=== PATIENT | male | born 1955 | race Caucasian/White ===

== ENCOUNTER 2017-03-24 15:00 | Inpatient (IN) | payer OTHER ==
[~2017-03-24] VITALS: Ht 165.1 cm; Wt 54.9 kg
--- NOTE | ~2017-03-24 | PA ---
Unit #: [id number] #: [id number] Patient: MAQRUITA WINCHESTER [id number] [facility] [address] [place] [address] [id number] MR#: [id number] NAME: MARQUITA WINCHESTER ROOM: 82 Age: 61 Sex: M Admission Date: 03/24/2017 : 1955 Date of Assessment: 03/25/2017 Attending Physician: Compa Mckeon M.D. Admitting Physician: Compa Mckeon M.D. Primary Care Physician: Generic Doctor Not In System PSYCHIATRIC ASSESSMENT IDENTIFYING INFORMATION The patient is a 61-year-old white male admitted to the [facility] unit complaining of increased alcohol use and depressed mood. INFORMANT(S) Patient. RELIABILITY Fair. CHIEF COMPLAINT None given. HISTORY OF PRESENT ILLNESS The patient is a 61-year-old white male who reports a 30 year history of alcohol dependence. The patient reports that he has been drinking 1-1/2 pints of vodka on a daily basis. The patient's CIWA score on admission was a 6. His blood alcohol 0 but his pulse was 118. The patient is originally from [place] but has worked in the [employer]. He is now retired. His daughter lives in the area but the patient himself has no home. The patient reports a history of suicidal ideation but has no history of attempts. The patient reports that he has been prescribed "mood stabilizing medication in the past" but at the time of admission we have no record of any medications which he has been taking. PAST PSYCHIATRIC HISTORY As above. FAMILY HISTORY Noncontributory. SOCIAL HISTORY The patient is currently homeless. He is originally from [place], grew up in [place] and has worked in the [employer] industry but is retired. He had been an announcer. He reports alcohol use as noted previously and is a smoker. MEDICAL HISTORY Noncontributory. MEDICATION HISTORY None at this time. Unit #: [id number] #: [id number] Patient: MARQUITA WINCHESTER ALLERGIES None reported. MENTAL STATUS EXAM At this time, reveals the patient to be a somewhat disheveled white male appearing older than his stated age of 61 years. He is in no apparent physical distress at the time of the examination. He is awake, alert, oriented in all spheres. His mood is mildly dysphoric. His affect congruent. Speech is generally relevant and coherent. There are no gross deficits in memory or cognition noted. Intelligence is judged to be in the average range based on fund of knowledge. The patient is cooperative throughout the interview. He is currently reporting no suicidal/homicidal ideation or psychotic features. Judgement and insight appear to be intact. ASSETS AND LIABILITIES Patient's assets, motivation for changes. Liabilities, lack of resources. ADMITTING DIAGNOSES 1. Alcohol use disorder. 2. Mood disorder, unspecified. PSYCHIATRIC PLAN/TREATMENT GOALS The patient remains hospitalized for safety and stabilization. Routine detox protocol for alcohol has been initiated. We will attempt to contact the patient's pharmacy in [place], [place] as soon as possible but it may not be open until Tuesday. I have asked for a med consult related to history of hypertension. ESTIMATED LENGTH OF STAY Five days. Dictated by... Compa Mckeon M.D. CAROLINA/padmini TD: 03/25/2017 19:45 JOB #: [id number] PSYCHIATRIC ASSESSMENT Page 1 of 1 X Compa Mckeon MD X PSYCHIATRIC ASSESSMENT
--- NOTE | ~2017-03-24 | PN ---
Unit #: [id number] #: [id number] Patient: MARQUITA WINCHESTER [id number] [facility] [address] [place] [address] [id number] MR#: [id number] NAME: MARQUITA WINCHESTER ROOM: P182 Age: 61 Sex: M Admission Date: 03/24/2017 : 1955 Attending Physician: Compa Mckeon M.D. Admitting Physician: Compa Mckeon M.D. Primary Care Physician: Bronson Doctor Not In System [facility] PROGRESS NOTES DATE 03/28/2017 DISCUSSION The patient reports that his daughter has made arrangements for him to go to a rehab facility and discharge should take place tomorrow to that end. Dictated by... Compa Mckeon M.D. CB/nurys TD: 03/29/2017 00:26 JOB #: [id number] [facility] PROGRESS NOTES Page 1 of 1 X Compa Mckeon MD X PROGRESS NOTE
--- NOTE | ~2017-03-24 | PN ---
Unit #: [id number] #: [id number] Patient: MARQUITA WINCHESTER [id number] [facility] [address] [place] [address] [id number] MR#: [id number] NAME: MARQUITA WINCHESTER ROOM: P182 Age: 61 Sex: M Admission Date: 03/24/2017 : 1955 Attending Physician: Compa Mckeon M.D. Admitting Physician: Compa Mckeon M.D. Primary Care Physician: Generic Doctor Not In System [facility] PROGRESS NOTES DATE 03/26/2017 DISCUSSION The patient is resting comfortably today and voices no new complaint. Staff reports no management issues but reports that his participation has been less than optimal. We continue his detox with planned early week discharge. Dictated by... Compa Mckeon M.D. CB/fareed TD: 03/26/2017 14:36 JOB #: [id number] [facility] PROGRESS NOTES Page 1 of 1 X Compa Mckeon MD X PROGRESS NOTE
--- NOTE | ~2017-03-24 | PN ---
Unit #: [id number] #: [id number] Patient: MARQUITA WINCHESTER [id number] [facility] [address] [place] [address] [id number] I MR#: [id number] NAME: MARQUITA WINCHESTER ROOM: P182 Age: 61 Sex: M Admission Date: 03/24/2017 : 1955 Attending Physician: Compa Mckeon M.D. Admitting Physician: Compa Mckeon M.D. Primary Care Physician: Generic Doctor Not In System [facility] PROGRESS NOTES DATE 03/27/2017 DISCUSSION The patient is active within the therapeutic milieu. His detox continues uneventfully and he should be ready for discharge within the next couple of days. We will do what we can with regards to disposition but the patient's lack of resources make the most likely disposition referral to a local homeless fci. Dictated by... Compa Mckeon M.D. CB/nurys TD: 03/28/2017 01:37 JOB #: [id number] [facility] PROGRESS NOTES Page 1 of 1 X Compa Mckeon MD PROGRESS NOTE
--- NOTE | ~2017-03-24 | CO ---
Unit #: [id number] #: [id number] Patient: MARQUITA WINCHESTER [id number] [facility] [address] [place] [address] [id number] I MR#: [id number] NAME: MARQUITA WINCHESTER ROOM: 82 Age: 61 Sex: M Admission Date: 03/24/2017 : 1955 Attending Physician: Compa Mckeon M.D. Primary Care Physician: Generic Doctor Not In System CONSULTATION REPORT REASON FOR CONSULT Patient's low potassium level. SUBJECTIVE "I do drink a lot of alcohol. I have drank at least a pint and a half every day. I don't eat very well." OBJECTIVE Vital signs within normal limits. Potassium level from this morning 03/26 is at 2.5. Patient received 40 mEq of potassium syrup last night. Will re-administer same today and start patient on potassium 20 mEq b.i.d. and recheck Tuesday. Dictated by... Tiffany Mccain/padmini TD: 03/26/2017 18:06 JOB #: [id number] CONSULTATION REPORT Page 1 of 1 X Daysi Garcia APR X CONSULTATION REPORT
--- NOTE | ~2017-03-24 | CO ---
Unit #: [id number] #: [id number] Patient: MARQUITA WINCHESTER [id number] [place] [address] [id number] I MR#: [id number] NAME: MARQUITA WINCHESTER ROOM: P182 Age: 61 Sex: M Admission Date: 03/24/2017 : 1955 Attending Physician: Compa Mckeon M.D. Consultation Date: 03/25/2017 CONSULTATION REPORT HISTORY OF PRESENT ILLNESS Marquita had CMP that showed a potassium of 2.8 and a chloride of 96. He reports that at home, he has very terrible appetite likely due to his alcohol intake. He also had severe depression and anxiety that made him feel sick when he ate. He is not taking any water pills. He has no history of low potassium. He has no other complaints. PHYSICAL EXAMINATION CARDIAC: Regular rate and rhythm. No murmurs, gallops, or rubs. RESPIRATORY: Clear to auscultation bilaterally. ASSESSMENT AND PLAN Marquita did receive potassium supplements in the morning. We will recheck BMP in the morning. Please notify us if his potassium level is still abnormal. Dictated by... Sierra Wood A.P.R.N. for Zaynab Day/lonny TD: 03/27/2017 23:18 JOB #: [id number] CONSULTATION REPORT Page 1 of 1 X SIERRA GARVIN APRN X CONSULTATION REPORT
--- NOTE | ~2017-03-24 | HP ---
Unit #: [id number] #: [id number] Patient: MARQUITA WINCHESTER [id number] [facility] [address] [place] [address] [id number] I MR#: [id number] NAME: MARQUITA WINCHESTER ROOM: P182 Age: 61 Sex: M Admission Date: 03/24/2017 : 1955 Attending Physician: Compa Mckeon M.D. Admitting Physician: Compa Mckeon M.D. Primary Care Physician: Generic Doctor Not In System HISTORY AND PHYSICAL HISTORY OF PRESENT ILLNESS Maqruita is a 61-year-old male admitted on 03/24/2017 to [facility] for detox from alcohol as well as depression and anxiety. PAST MEDICAL HISTORY 1. Hypertension. 2. Pancreatitis. 3. Insomnia. PAST SURGICAL HISTORY None. ALLERGIES No known drug allergies. SOCIAL HISTORY Smokes 1-1/2 packs of cigarettes daily. Drinks 1 to 1-1/2 pints of alcohol daily. Denies any illegal drug use. He is currently and living alone. FAMILY HISTORY Noncontributory. REVIEW OF SYSTEMS CONSTITUTIONAL: No fever or chills. HEENT: Denies any sore throat, ear pain or runny nose. CARDIOVASCULAR: Denies chest pain, irregular heart rhythm or palpitations. CHEST: Denies shortness of breath or cough. No hemoptysis. GASTROINTESTINAL: Denies nausea, vomiting, diarrhea or chronic constipation. ENDOCRINE: Denies history of increased thirst or urination. No recent significant weight loss or gain. GENITOURINARY: Denies dysuria, frequency, or hematuria. SKIN: Denies any rashes. HEMATOLOGIC: Denies history of increased bleeding or bruising. MUSCULOSKELETAL: Denies any hot, swollen joints. No generalized muscle pain. NEUROLOGIC: Denies problems with vision or speech. No frequent, severe headaches. No numbness, tingling or weakness in any extremities. Denies loss of bladder or bowel control. CURRENT MEDICATIONS He is unsure of any of his home medications. He does report taking a Unit #: [id number] #: [id number] Patient: MARQUITA WINCHESTER blood pressure medication but no water pills. We are trying to verify these with his pharmacy. However, they will not be open until next week. PHYSICAL EXAMINATION GENERAL: Alert, oriented, in no acute distress. VITAL SIGNS: Blood pressure 129/89, heart rate 98 during exam, respirations 16. HEIGHT: 5 feet 5. WEIGHT: 121 pounds. SKIN: Warm and dry without rash or lesion. HEENT: Normocephalic. TMs not viewed. Oral and nasal passages clear. Conjunctivae clear. PERRLA. EOMs intact. NECK: Supple without lymphadenopathy or thyromegaly. HEART: Regular rate and rhythm without murmur. LUNGS: Clear. ABDOMEN: Soft, nontender, without masses or hepatosplenomegaly. : Not done. EXTREMITIES: No evidence of cyanosis, clubbing or edema. Moves all without focal deficit. NEUROLOGICAL: Grossly within normal limits. Cranial Nerves: II: Visual eden are intact. III, IV AND : Extraocular movements are intact. Pupils are equal, round and reactive to light. V: Facial sensation is grossly normal. VII: Facial movements and expression are normal. VIII: Auditory acuity grossly intact. IX, X: Uvula is midline. Phonation is normal. XI: Patient shrugs shoulders and turns head normally. XII: Tongue protrudes in the midline. Sensory and Motor Function: Sensory and motor sensation is grossly normal. Motor: moves all extremities well. Coordination: Gait is normal. Deep Tendon Reflexes: Intact. IMPRESSION 1. Psychiatric admission. 2. Hypertension. 3. Pancreatitis. 4. Insomnia. RECOMMENDATIONS PSYCHIATRIC: Per psychiatrist. MEDICAL: No contraindication to participate in facility's activities. MEDICAL PROGNOSIS Good. MEDICAL CONDITION Stable. Dictated by... Tiffany De Anda/padmini TD: 03/25/2017 22:36 JOB #: [id number] Unit #: [id number] #: [id number] Patient: MARQUITA WINCHESTER HISTORY AND PHYSICAL Page 1 of 1 X MICHAEL GARVIN APRN HISTORY AND PHYSICAL
--- NOTE | ~2017-03-24 | DS ---
Unit #: [id number] #: [id number] Patient: MARQUITA WINCHESTER [id number] [facility] [address] [place] [address] [id number] I MR#: [id number] NAME: MARQUITA WINCHESTER ROOM: [facility] Age: 61 Sex: M Admission Date: 03/24/2017 : 1955 Discharge Date: 03/29/2017 Attending Physician: Compa Mckeon M.D. Primary Care Physician: Generic Doctor Not In System DISCHARGE SUMMARY REASON FOR ADMISSION The patient is a 61-year-old, , white male, admitted to the [facility] unit for alcohol detox. HOSPITAL COURSE The patient was admitted to the [facility] unit and placed on routine detoxification protocol for alcohol. His stay in the hospital was a brief and uneventful one. His detox went smoothly. His participation within the therapeutic milieu left much to be desired. By 03/29/2017, the patient exhibited no signs or symptoms of withdrawal. He stated that his daughter had made arrangements for him to go for residential chemical dependency treatment. Discharge was ordered. FINAL DIAGNOSES Alcohol use disorder. DISPOSITION ON DISCHARGE The patient is discharged on no psychotropic or other medications. FOLLOWUP Followup will take place through the auspices of community mental health resources. PROGNOSIS The patient's prognosis is fair. Dictated by... Compa Mckeon M.D. [place]OLINA/lonny TD: 03/29/2017 14:39 JOB #: [id number] Unit #: [id number] #: [id number] Patient: MARQUITA WINCHESTER DISCHARGE SUMMARY Page 1 of 1 X Compa Mckeon MD X DISCHARGE SUMMARY
[2017-03-25 09:40] LABS: BASOPHIL% 0.5 % (0-2.5); EOSINOPHIL# 0.2 X10e3 (0-0.7); EOSINOPHIL% 2.8 % (0.0-7.0); HEMATOCRIT 35.1 % (38.0-50.0); HEMOGLOBIN 11.5 gm/dL (13.0-16.0); LYMPHOCYTE# 1.5 X10e3 (1.0-3.5); LYMPHOCYTE% 27.3 % (17.0-45.0); MEAN CELL VOLUME 95.4 FL (83-96); MEAN CORPUSCULAR HEMOGLOBIN 31.3 PG (28-34); MEAN CORPUSCULAR HGB CONC 32.8 g/dL (30-36); MEAN PLATELET VOLUME 8.4 FL (6.5-11.5); MONOCYTE# 0.5 X10e3 (0-1.0); MONOCYTE% 9.2 % (3.0-12.0); NEUTROPHIL# 3.4 X10e3 (1.5-7.1); NEUTROPHIL% 60.2 % (40-75); PLATELET COUNT 151 X10e3 (140-420); RED BLOOD COUNT 3.68 X10e (3.90-5.60); RED CELL DISTRIBUTION WIDTH 16.4 % (11.0-15.5); WHITE BLOOD COUNT 5.6 X10e3 (4.0-10.5)
[2017-03-25 09:40] LABS: URINE APPEARANCE CLOUDY; URINE BLOOD NEG (NEG); URINE COLOR DK YELLOW; URINE GLUCOSE NEG (NEG); URINE KETONE TRACE (NEG); URINE LEUKOCYTE ESTERASE TRACE (NEG); URINE NITRATE NEG (NEG); URINE PROTEIN 1+ (NEG); URINE SPECIFIC GRAVITY 1.023 (1.003-1.035)
[2017-03-25 09:43] LABS: URINE BACTERIA AUWI NEG (NEGATIVE); URINE SQUAMOUS EPITHELIAL CELL OCC /[HPF]
[2017-03-25 09:55] LABS: DIFF IND NO
[2017-03-25 10:02] LABS: ALBUMIN SERUM 3.4 g/dL (3.5-5.0); BILIRUBIN,TOTAL 0.7 mg/dL (0.2-2.0); CALCIUM SERUM 9.1 mg/dL (8.4-10.2); CREATININE SERUM 0.8 mg/dL (0.6-1.4); GLOM FILT RATE Estimated 96.5 mL/min (>60); PROTEIN TOTAL SERUM 6.1 g/dL (6.0-8.3)
[2017-03-25 10:05] LABS: POTASSIUM 2.8 mmol/L (3.5-5.1)
[2017-03-25 10:12] LABS: URINE BILIRUBIN NEG (NEG)
[2017-03-25 10:13] LABS: URINE CRYSTALS CALCIUM OXALATE /[HPF]
[2017-03-25 11:17] LABS: AMPHETAMINE NEG (NEG); BARBITURATES NEG (NEG); BENZODIAZEPINES POS (NEG); COCAINE NEG (NEG); MARIJUANA NEG (NEG); OPIATES NEG (NEG); TRICYCLIC ANTIDEPRESSANTS POS (NEG); U METHADONE NEG (NEG)
[2017-03-26 11:43] LABS: ALBUMIN SERUM 3.4 g/dL (3.5-5.0); BILIRUBIN,TOTAL 1.2 mg/dL (0.2-2.0); CALCIUM SERUM 9.5 mg/dL (8.4-10.2); CREATININE SERUM 0.9 mg/dL (0.6-1.4); GLOM FILT RATE Estimated 91.9 mL/min (>60); PROTEIN TOTAL SERUM 6.1 g/dL (6.0-8.3)
[2017-03-26 12:07] LABS: POTASSIUM 2.5 mmol/L (3.5-5.1)
[2017-03-27 12:31] LABS: BUN/CREATININE RATIO 18.75; CALCIUM SERUM 9.5 mg/dL (8.4-10.2); CREATININE SERUM 0.8 mg/dL (0.6-1.4); GLOM FILT RATE Estimated 96.5 mL/min (>60); POTASSIUM 3.9 mmol/L (3.5-5.1)
[2017-03-28 10:15] LABS: BUN/CREATININE RATIO 17.14; CALCIUM SERUM 9.7 mg/dL (8.4-10.2); CREATININE SERUM 0.7 mg/dL (0.6-1.4); GLOM FILT RATE Estimated 101.9 mL/min (>60); POTASSIUM 4.7 mmol/L (3.5-5.1)
== END 2017-03-29 15:50 | DRG 897 ==
LOC: P1E 17:39
PROVIDERS: Family Medicine; Specialist
PROC: HZ2ZZZZ Detoxification Services for Substance Abuse Treatment (ICD-10-PCS; principal; 2017-03-24)
DX: F10.10 Alcohol abuse, uncomplicated (principal); F39 Unspecified mood [affective] disorder; I10 Essential (primary) hypertension; F17.210 Nicotine dependence, cigarettes, uncomplicated
CPT/HCPCS: 80048; 80053; 80307; 81003; 85025; 86592